=== PATIENT | female | born 1995 | race Two or more races ===

== ENCOUNTER 2017-06-25 09:05 | Inpatient (IN) | payer BC ==
[2017-06-21 12:40] LABS: BASOPHILS 0.4 %; BASOPHILS ABSOLUTE 0.03 10/3/uL (0.0-0.16); EOSINOPHILS 0.7 %; EOSINOPHILS ABSOLUTE 0.05 10/3/uL (0.0-0.53); HEMATOCRIT 42.9 % (36.0-48.0); HEMOGLOBIN 14.7 g/dL (12.0-16.0); IMMATURE GRANULOCYTES 0.1 %; IMMATURE GRANULOCYTES ABSOLUTE 0.01 10/3/uL (0.0-0.11); LYMPHOCYTES 34.9 %; LYMPHOCYTES ABSOLUTE 2.38 10/3/uL (0.67-4.30); MEAN CORPUS HGB CONC 34.3 g/dL (32.0-36.0); MEAN CORPUSCULAR HEMOGLOB 31.5 pg (26.0-34.0); MEAN CORPUSCULAR VOLUME 92.1 fL (80-100); MEAN PLATELET VOLUME 11.7 fL (9.2-13.0); MONOCYTES 5.3 %; MONOCYTES ABSOLUTE 0.36 10/3/uL (0.21-1.20); NEUTROPHILS 58.6 %; NEUTROPHILS ABSOLUTE 3.98 10/3/uL (2.02-8.40); PLATELET COUNT 280 10/3/uL (150-400); RBC DISTRIBUTION WIDTH 12.8 % (12.0-16.0); RED CELL COUNT 4.66 10/6/uL (4.0-5.6); WHITE BLOOD CELLS 6.8 10/3/uL (4.5-10.5)
[2017-06-21 12:41] LABS: MANUAL DIFF NO %
[2017-06-21 12:42] LABS: INTERNATIONAL NORMAL RATI 1.1 UNITS (-); PARTIAL THROMBO TIME 30.5 SEC (22.5-37.2); PROTIME (NOT ORD) 13.7 SEC (12.0-14.5)
[2017-06-21 13:29] LABS: A/G RATIO 1.1 (0.7-1.9); ALKALINE PHOSPHATASE 67 U/L (45-117); BUN (BLOOD UREA NITROGEN) 11 MG/DL (6-23); CALCIUM, SERUM 9.7 MG/DL (8.5-10.4); CHLORIDE, SERUM 103 MMOL/L (96-112); CHOL/HDL RATIO(NOT ORDER) 2.8 (0-5); CHOLESTEROL 123 MG/DL (< 200); CO2 (CARBON DIOXIDE) 26 MMOL/L (24-34); CREATININE 0.88 MG/DL (0.55-1.02); FOLATE 22.3 NG/ML (>5.2); GFR AFRICAN AMERICAN 110 ML/MIN (>=60); GFR NON AFRICAN AMERICAN 95 ML/MIN (>=60); GLOBULIN 3.8 G/DL (2.5-4.1); GLUCOSE, SERUM 79 MG/DL (60-99); HDL CHOLESTEROL 44 MG/DL (> 49); IRON, SERUM 116 MCG/DL (35-150); LDL CHOLESTEROL 59 MG/DL (< 130); NON-HDL CHOLESTEROL 79 MG/DL (< 160); POTASSIUM, SERUM 4.1 MMOL/L (3.5-5.3); SGOT(AST) 23 U/L (5-40); SGPT(ALT) 41 U/L (5-65); SODIUM, SERUM 137 MMOL/L (135-148); TOTAL BILIRUBIN 0.8 MG/DL (0-1.2); TOTAL PROTEIN 7.8 G/DL (6.0-8.5); TRIGLYCERIDE 102 MG/DL (< 150)
[2017-06-21 13:33] LABS: ASCORBIC ACID (UR NOT ORDER) NEG (NEG); BILIRUBIN, URINE NEGATIVE (NEG); KETONE, URINE 20 MG/DL (NEG); LEUKOCYTE ESTERASE(NOT OR NEG (NEG); WBC (NOT ORDERED) (RFLEX) 1 (0-5)
[~2017-06-25] VITALS: Ht 162.6 cm; Wt 117.9 kg
--- NOTE | ~2017-06-25 | HP ---
History And Physical [id number] [place]. [address] NAME: ROOSEVELT ALBERTO : 97 STATUS : PRE IN PAT#: [id number] AGE: 22 ADM/REG DATE : MR#: [id number] REPORT SERV DATE: 06/22/17 DICTATED BY: BRAYAN ZHENG DATE: 06/22/17 REPORT STATUS : Draft TRANSCRIBED BY: CARTER DATE: 06/22/17 DATE OF ADMISSION: 06/25/2017 CHIEF COMPLAINT: Morbid obesity. HISTORY OF PRESENT ILLNESS: The patient is a 22-year-old female, who will be admitted for bariatric surgery, specifically the sleeve gastrectomy for the treatment of morbid obesity. She has been considering surgical intervention for the last several years. She has recently attended the informational seminar here in our office. She originally started this process in [facility]; however, her family has recently relocated and she now is presenting for services here with us. She struggled with her weight since childhood starting around ages 2-3. She reports her current weight of 260.4 pounds with a BMI of 42.7, has been her maximum weight. She has tried multiple attempts at weight loss in the past including Weight Watchers, decrease portions, food measuring, and self exercise. She has successfully lost approximately 10 pounds through these efforts. PAST MEDICAL HISTORY: 1. GERD. 2. Arthropathy. 3. ADD. PAST SURGICAL HISTORY: 1. Removal of adenoids, 1998. 2. [place] teeth extraction, 2013. 3. Tonsillectomy, 2015. FAMILY HISTORY: The patient's mother has a history of diabetes, obesity, essential hypertension, and chronic back pain. She is currently also seeking bariatric surgery through our office. The patient's father has a significant history of arthropathy, reflux disease, and chronic depression. SOCIAL HISTORY: The patient is currently employed at [employer]. She is single. Denies nicotine use. She states she engages in social alcohol use every 2-3 months. MEDICATIONS: The patient denies current medications. ALLERGIES: NO KNOWN DRUG ALLERGIES; HOWEVER, THE PATIENT EXPRESSES A MILD RASH TO LATEX. REVIEW OF SYSTEMS: Please refer to HPI. PHYSICAL EXAMINATION: VITAL SIGNS: The patient is a 22-year-old, female, height 5 feet 5.5 inches, weight 260.4 pounds. BMI of 42.7. Vital signs are stable. The patient is afebrile. CONSTITUTIONAL: General appearance, well-nourished, morbidly obese, in no acute distress, ambulating normally. History And Physical [address] [address] NAME: ROOSEVELT ALBERTO : 97 STATUS : PRE IN PAT#: [id number] AGE: 22 ADM/REG DATE : MR#: [id number] REPORT SERV DATE: 06/22/17 DICTATED BY: BRAYAN ZHENG DATE: 06/22/17 REPORT STATUS : Draft TRANSCRIBED BY: CARTER DATE: 06/22/17 HEAD: Pupils are equal, round, reactive to light. Ear, nose, throat are within normal limits. NECK: Supple. Trachea midline with no Masses. CARDIOVASCULAR: Heart auscultation, regular rate and rhythm. CHEST: No discomfort, voiced to palpation. LUNGS: Respiratory effort, no dyspnea. On auscultation, no wheezes, rales, crackles, or rhonchi. Breath sounds are normal and equal bilaterally. Clear to auscultation. ABDOMEN: No tenderness, guarding, masses. Abdomen is soft, obese, nondistended. Bowel sounds normal. PSYCHIATRIC: Good judgment and insight. Normal mood and affect. The patient is active and alert. Oriented to time, place, and person. LABORATORY DATA: Labs have been completed according to protocol and pre-admission testing and are within normal limits for surgery. Bariatric upper GI has been completed and there was no mention of a hiatal hernia. ASSESSMENT AND PLAN: The patient will be admitted inpatient for this sleeve gastrectomy for the treatment of morbid obesity having a BMI of 42.7 and a weight of 260.4 pounds. According to her current height and weight, she is 132.9 pounds excess weight. This patient fulfills the NIH guidelines for bariatric surgery according to the 1991 consensus having either BMI of more than 40 kg/sq m or BMI between 35 to 40 kg/sq m with an associated comorbidities, has been overweight at least 5 years and has tried to lose weight several times and failed to maintain weight loss even with physician supervised programs. Surgical weight loss options were presented including the Dez-en-Y gastric bypass, biliopancreatic diversion with duodenal switch, sleeve gastrectomy, and adjustable gastric banding. This patient has chosen a sleeve gastrectomy surgery because of the features of no need for adjustments, less invasive than the Dez-en-Y gastric bypass, and less risk of infection. The gastric bypass was not an option for this patient because of the invasiveness of the procedure, the associated risk, and the type of complications. The sleeve gastrectomy surgery in our experience can give this patient an average of 50%-60% of excess weight loss over the next 12-18 months. This patient is aware of the risks and complications associated with the procedure, which include staple leak, bleeding, obstruction, and infection which were discussed in length. Also this patient understands the importance of followup in order to achieve good results. Finally, this patient had completed a comprehensive educational session through her previous surgeon in [place], [place], as well as through [facility] Multidisciplinary Team program and is ready to proceed with surgery. DICTATED BY: Brayan Zheng M.D. JP/CARTER Brayan Obando M.D. History And Physical [address] [address] NAME: ROOSEVELT ALBERTO : 97 STATUS : PRE IN PAT#: [id number] AGE: 22 ADM/REG DATE : MR#: [id number] REPORT SERV DATE: 06/22/17 DICTATED BY: BRAYAN ZHENG DATE: 06/22/17 REPORT STATUS : Draft TRANSCRIBED BY: CARTER DATE: 06/22/17 / [id number]
--- NOTE | ~2017-06-25 | OP ---
Record Of Operation [facility] [address] [place]. [address] NAME: ROOSEVELT ALBERTO : 97 STATUS : ADM IN PAT#: [id number] AGE: 22 ADM/REG DATE : 06/25/17 MR#: [id number] REPORT SERV DATE: 06/25/17 DICTATED BY: BRAYAN YORK DATE: 06/25/17 REPORT STATUS : Draft TRANSCRIBED BY: CARTER DATE: 06/25/17 DATE OF PROCEDURE: PREOPERATIVE DIAGNOSIS: Morbid obesity. POSTOPERATIVE DIAGNOSIS: Morbid obesity. OPERATION: Laparoscopic sleeve gastrectomy. ANESTHESIA: General endotracheal. COMPLICATIONS: None. INDICATION FOR PROCEDURE: This is a 22-year-old female with morbid obesity with a BMI of 42.7 and a weight of 260.4 pounds and associated arthropathy. DESCRIPTION OF OPERATION: The patient was taken to the operating room, and after adequate general endotracheal anesthesia, was prepped and draped in a sterile manner. A total of 5 trocars were placed in the upper abdomen and carefully we the left lobe of the liver. Identified the upper stomach anatomy. We did remove some of the epiphrenic fat pad on top of the stomach using the Harmonic Scalpel. Then, we entered the lesser sac at the level of the lower body of the stomach next to the greater curvature and started dissecting the greater curvature all the way up to the fundus and mobilized the fundus all the way up to the left maryam, dissected the left maryam completely with the Harmonic Scalpel and all the posterior attachments were taken down to mobilize completely the stomach and then continued dissecting the greater curvature all the way down to the distal antrum to about 3 cm or so from the pylorus. Then, we introduced a 36-Luxembourgish blunt-tip bougie suction catheter all the way down to the distal antrum and put it on suction to delineate well the stomach and started stapling about 5 cm from the pylorus using the [place] automatic stapler with a green load and stapler reinforcement using the SeamGuard. We used a total of 4 staplings from the bottom to the top. Staple line looked intact. There was no evidence of bleeding or oozing. Then, we proceeded to tag the greater omentum into the staple line the top, middle, and lower portion with interrupted Vicryl 2-0 sutures and then removed the calibration tube and put it in and out to verify there was no evidence of obstruction, then removed the stomach specimen through the 15 mm trocar site after we stretched it with a Mckayla and then closed that fascial defect with an EFX fascial closure device using the Vicryl #0, then we removed all the trocars and the liver retractor under direct visualization and closed all the incisions with subcuticular Monocryl 4-0. The patient tolerated the procedure well, did not have any problems. YANIRA/CARTER Brayan Obando M.D. Record Of [address] [address] NAME: ROOSEVELT ALBERTO : 97 STATUS : ADM IN [facility]#: [id number] AGE: 22 ADM/REG DATE : 06/25/17 MR#: [id number] REPORT SERV DATE: 06/25/17 DICTATED BY: BRAYAN YORK DATE: 06/25/17 REPORT STATUS : Draft TRANSCRIBED BY: CARTER DATE: 06/25/17 / [id number] CC: Brayan York M.D.
[~2017-06-25 09:05] MED LIST: *DENIES
[2017-06-25 21:08] LABS: HEMATOCRIT 42.3 % (36.0-48.0); HEMOGLOBIN 14.6 g/dL (12.0-16.0)
[2017-06-26 05:22] LABS: BASOPHILS 0.1 %; BASOPHILS ABSOLUTE 0.01 10/3/uL (0.0-0.16); EOSINOPHILS 0 %; HEMATOCRIT 42.1 % (36.0-48.0); HEMOGLOBIN 14.3 g/dL (12.0-16.0); IMMATURE GRANULOCYTES 0.2 %; IMMATURE GRANULOCYTES ABSOLUTE 0.03 10/3/uL (0.0-0.11); LYMPHOCYTES 8.3 %; LYMPHOCYTES ABSOLUTE 1.18 10/3/uL (0.67-4.30); MEAN CORPUSCULAR HEMOGLOB 31.4 pg (26.0-34.0); MEAN CORPUSCULAR VOLUME 92.3 fL (80-100); MEAN PLATELET VOLUME 11.8 fL (9.2-13.0); MONOCYTES ABSOLUTE 0.99 10/3/uL (0.21-1.20); NEUTROPHILS 84.4 %; PLATELET COUNT 269 10/3/uL (150-400); RBC DISTRIBUTION WIDTH 13.2 % (12.0-16.0); RED CELL COUNT 4.56 10/6/uL (4.0-5.6)
[2017-06-26 05:23] LABS: MANUAL DIFF NO %; WHITE BLOOD CELLS 14.2 10/3/uL (4.5-10.5)
[2017-06-26] MEDS ORDERED: SUCR PO (08:54)
== END 2017-06-26 09:49 | disposition home or self-care (01) | DRG 621 ==
LOC: ENRESERV → ENRESERVDT → ENRESERVTM → 2SO 09:05 → SDC/OF 09:05 → PACU 14:09 → 2SO 19:52
PROVIDERS: Surgery
PROC: 0DB64Z3 Excision of Stomach, Percutaneous Endoscopic Approach, Vertical (ICD-10-PCS; principal; 2017-06-25 11:15)
DX: E66.01 Morbid (severe) obesity due to excess calories (principal); F98.8 Other specified behavioral and emotional disorders with onset usually occurring in childhood and adolescence; Z68.42 Body mass index [BMI] 45.0-49.9, adult; K21.9 Gastro-esophageal reflux disease without esophagitis; M12.9 Arthropathy, unspecified; Z83.3 Family history of diabetes mellitus; Z82.49 Family history of ischemic heart disease and other diseases of the circulatory system; Z82.61 Family history of arthritis; Z91.040 Latex allergy status
CPT/HCPCS: 74246; 80053; 80061; 81001; 82607; 82746; 83036; 83540; 84443; 84703; 85014; 85018; 85025; 85610; 85730; 88307; 93005; A9270-GY; C9113; J0690; J2250; J2270; J2370; J2405; J2550; J2710; J2795; J3010